=== PATIENT | male | born 1990 | race Caucasian/White ===

== ENCOUNTER 2023-03-08 20:05 | Emergency (ER) | payer BC ==
[2023-03-08] MEDS ORDERED: Diphtheria,Pertussis(Acell),Tetanus Vaccine 0.5 ML Syringe IM ONE (21:16)
== END 2023-03-08 21:26 | disposition home or self-care (01) ==
LOC: FB.ED 20:05
DX: S50.312A Abrasion of left elbow, initial encounter (principal); S90.512A Abrasion, left ankle, initial encounter; Z48.00 Encounter for change or removal of nonsurgical wound dressing; F17.210 Nicotine dependence, cigarettes, uncomplicated; Z23 Encounter for immunization; W18.30XA Fall on same level, unspecified, initial encounter
CPT/HCPCS: 90471; 90715; 99282-25

== ENCOUNTER 2024-04-29 21:43 | Emergency (ER) | payer BC ==
[2024-04-29] MEDS ORDERED: Sodium Chloride 0.9% 10 ML Syringe FLUSH PRN (22:04)
[2024-04-30] MEDS: Diazepam 5 MG Tab PO ONE (00:01)
== END 2024-04-30 00:08 | disposition home or self-care (01) ==
LOC: EDBD → FB.ED 21:43 → MERGE 21:43 → FB.ED 04-30 00:08
DX: S76.912A Strain of unspecified muscles, fascia and tendons at thigh level, left thigh, initial encounter (principal); M62.838 Other muscle spasm; F41.0 Panic disorder [episodic paroxysmal anxiety]; Z79.899 Other long term (current) drug therapy; X50.0XXA Overexertion from strenuous movement or load, initial encounter
CPT/HCPCS: 96374; 99284; J3360; A9270-GY

== ENCOUNTER 2024-05-13 23:01 | Emergency (ER) | payer BC ==
[2024-05-13] MEDS ORDERED: Sodium Chloride 0.9% 10 ML Syringe FLUSH PRN (23:23)
[2024-05-13] MEDS: LORazepam 2 MG/ML SDV IVPUSH ONE (23:33)
[2024-05-14 00:09] LABS: AMPHETAMINES SCREEN, URINE NEGATIVE (NEGATIVE); METHAMPHETAMINE SCREEN, URINE NEGATIVE (NEGATIVE); THC SCREEN,URINE POSITIVE (NEGATIVE)
[2024-05-14 00:10] LABS: BARBITURATE SCREEN,URINE NEGATIVE (NEGATIVE); BENZODIAZEPINES SCREEN,URINE POSITIVE (NEGATIVE); BUPRENORPHINE SCREEN,URINE NEGATIVE (NEGATIVE); METHADONE SCREEN, URINE NEGATIVE (NEGATIVE); OXYCODONE SCREEN,URINE NEGATIVE (NEGATIVE)
[2024-05-14] MEDS: LORazepam 2 MG/ML SDV IVPUSH ONE (00:20)
[2024-05-14 01:19] LABS: HEMATOCRIT 44.8 % (38.3-50.1); HEMOGLOBIN 15.6 g/dL (12.9-17.7); MEAN CORPUSCULAR HEMOGLOBIN 30.4 pg (27.0-33.3); MEAN CORPUSCULAR HGB CONC 34.8 g/dL (28.7-35.3); MEAN CORPUSCULAR VOLUME 87.2 fL (80.8-98.7); MEAN PLATELET VOLUME 7.7 fL (6.7-11.0); PLATELET COUNT,PLT 180 x10(3)uL (117-477); RED BLOOD CELL COUNT 5.14 x10(6)uL (3.90-5.90); RED CELL DISTRIBUTION WIDTH 12.9 % (12.4-15.0); WHITE BLOOD CELL COUNT,WBC 11.8 x10-3/uL (3.2-10.1)
[2024-05-14 01:22] LABS: BLOOD UREA NITROGEN,BUN 15 mg/dL (7-18); BUN/CREATININE RATIO 13.6 (9-20); CALCIUM 8.9 mg/dL (8.6-10.2); CARBON DIOXIDE,CO2 24 mmol/L (21-32); CHLORIDE,CL 102 mmol/L (100-110); CREATININE 1.1 mg/dL (0.70-1.30); ESTIMATED GFR 92 mL/min (>60); GLUCOSE RANDOM 103 mg/dL (80-116); SODIUM,NA 139 mmol/L (135-145)
[2024-05-14 01:28] LABS: A/G RATIO 1.5; ALANINE AMINOTRANSFERASE,ALT 23 U/L (12-36); ALBUMIN 4.4 g/dL (3.5-5.2); ALKALINE PHOSPHATASE 59 IU/L (56-112); ASPARTATE AMNIOTRANSFERASE,AST 14 IU/L (5-25); BILIRUBIN TOTAL 0.7 mg/dL (0.1-1.3); PROTEIN TOTAL,TP 7.3 g/dL (6.0-8.0)
[2024-05-14 01:41] LABS: LYMPHOCYTES PERCENT MAN 8 % (13-37); MONOCYTES PERCENT MAN 3 % (4-12); SEG NEUTROPHILS PERCENT MAN 89 % (46-82)
[2024-05-14 01:44] LABS: TROPONIN I 5.2 pg/mL (4.0-60.3); TSH ULTRASENSITIVE 1.82 IU/mL (0.36-3.74)
[2024-05-14 01:45] LABS: C-REACTIVE PROTEIN < 0.50 mg/dL (<0.50)
== END 2024-05-14 01:57 | disposition home or self-care (01) ==
LOC: FB.ED 23:01
DX: R07.89 Other chest pain (principal); F41.1 Generalized anxiety disorder
CPT/HCPCS: 36415; 71045; 80053; 80061; 80307; 84443; 84484; 85025; 85379; 86140; 96374; 96376; 99285; J2060; 93010; 99283